=== PATIENT | female | born 1970 | race Caucasian/White ===

== ENCOUNTER 2025-02-15 16:06 | Emergency (ER) | payer BC, MEDICAID, SELFPAY ==
[2025-02-15 16:07] VITALS: BP 151/93; PULSE 106; RESP 16; TEMP 36.6; O2SAT 95; BMI 27.4
--- NOTE | 2025-02-15 16:16 | CTR_ITS ---
PROCEDURE INFORMATION: Exam: CT Head Without Contrast Exam date and time: 02/15/2025 4:38 PM Age: 54 years old Clinical indication: Other: Confusion TECHNIQUE: Imaging protocol: Computed tomography of the head without contrast. Radiation optimization: All CT scans at this facility use at least one of these dose optimization techniques: automated exposure control; mA and/or kV adjustment per patient size (includes targeted exams where dose is matched to clinical indication); or iterative reconstruction. COMPARISON: No relevant prior studies available. RADIATION DOSE METRICS: Total DLP (mGy-cm): 979.14 FINDINGS: Brain: Parenchymal structures of the brain demonstrate normal anatomy and attenuation. The midline is intact. Beam hardening artifact obscures resolution through the posterior fossa structures. No hemorrhage. Unremarkable white matter. No mass effect. Cerebral ventricles: Ventricles demonstrate normal size shape and configuration and are felt to be in proportion to the degree of widening of the sulci, sylvian fissures and basilar cisterns. Paranasal sinuses: Visualized sinuses are unremarkable. No fluid levels. Mastoid air cells: Visualized mastoid air cells are well aerated. Bones: The calvarial vault appears to be intact and in the range of normal. No acute fracture. Soft tissues: Unremarkable. CT/CT head wo con* [id number] IMPRESSION: No acute intracranial head CT findings identified.
--- NOTE | 2025-02-15 16:17 | W.ED.AMS ---
HPI - Altered Mental Status General: Chief Complaint: Altered Mental Status Stated Complaint: AMS Time Seen by Provider: 02/15/25 16:10 Source: patient and EMS Mode of arrival: EMS Limitations: no limitations History of Present Illness: 54-year-old female is here from a care home states that she has been off of her baseline since seems to confused to them and has been more disorganized in her room than normal. Patient here is well-appearing she is answering all my questions of appropriately here she is ANO x 4 no signs of psychosis she denies SI HI denies any headache. Associated symptoms: Deny depression Related Data Allergies Allergy/AdvReac Type Severity Reaction Status Date / Time No Known Allergies Allergy Verified 02/15/25 16:11 Review of Systems Const: Denies: fever(s), chills, body aches or change in appetite ENMT: Denies: throat pain or dental pain Card: Denies: chest pain Resp: Denies: dyspnea GI: Denies: abdominal pain, nausea, vomiting or diarrhea Musc: Denies: neck pain or back pain Skin/Breast: Denies: rash Neuro: Denies: headache(s) Psych: Denies: depression Physical Exam Const: COMMON NORMALS: no acute distress, patient oriented x3 and healthy appearing HENMT: COMMON NORMALS: normocephalic and atraumatic HEAD & SCALP: normocephalic and atraumatic Eye: COMMON NORMALS: Equal, round and reactive pupils present and EOMs intact bilaterally PUPIL: Yes Equal, round and reactive pupils present Neck/C-Spine: COMMON NORMALS: full ROM and supple Chest: COMMONS NORMALS: normal inspection of the chest and normal palpation of entire chest wall Resp: COMMON NORMALS: normal respiratory effort, No retractions, No use of accessory muscles and clear to auscultation bilaterally AUSCULTATION: clear to auscultation bilaterally Cardio: COMMON NORMALS: regular rate, regular rhythm and No murmurs present (Cardio) RATE: regular rate RHYTHM: regular rhythm GI: COMMON NORMALS: Normal to inspection, nondistended, normoactive bowel sounds present, Soft to palpation, non-tender and no masses PALPATION: Yes Soft to palpation Extremity: COMMON NORMALS: normal to inspection and full ROM Neuro: COMMON NORMALS: patient oriented x3, moves all extremities and no focal motor deficits Psych: COMMON NORMALS: mental status grossly normal, Normal thought process present and cooperative THOUGHT PROCESS: Normal thought process present Skin: COMMON NORMALS: no rashes or lesions noted and no wounds GENERAL SKIN EXAM: no rashes or lesions noted Course Vital Signs: Vital signs: Vital Signs Temperature 97.9 F 02/15/25 16:07 Pulse Rate 106 H 02/15/25 16:07 Respiratory Rate 18 02/15/25 16:48 Blood Pressure 97/60 02/15/25 17:43 Pulse Oximetry 98 02/15/25 17:43 Oxygen Delivery Me thod Room Air 02/15/25 17:43 MDM - Altered Mental Status Medical Decision Making Patient presents for some confusion and care home here she is answering my questions appropriately she has no signs of acute psychosis she is having whole hallucinations no SI no HI imaging blood works normal she stable for discharge back to care home Medical Records I reviewed the patient's medical records. Lab Data I reviewed the patient's lab results. 02/15/25 16:25 02/15/25 16:[address] 02/15/25 16:16 IMPRESSION: No acute intracranial head CT findings identified. Laboratory Results WBC 14.22 10^3/uL (3.29-11.43) H 02/15/25 16:25 RBC 4.61 10^6/uL (3.85-5.65) 02/15/25 16:25 Hgb 12.90 g/dL (11.27-16.99) 02/15/25 16:25 Hct 39.4 % (36-47) 02/15/25 16:25 MCV 85.5 fl (85-98) 02/15/25 16:25 MCH 28.0 pg (27-33) 02/15/25 16:25 MCHC 32.7 g/dL (30-55) 02/15/25 16:25 RDW 13.5 % (12.1-15.1) 02/15/25 16:25 Plt Count 357 10^3/cmm (157-399) 02/15/25 16:25 MPV 9.7 fL (7.4-10.4) 02/15/25 16:25 Neut % (Auto) 65.9 % 02/15/25 16:25 Lymph % (Auto) 21.5 % 02/15/25 16:25 [place] % (Auto) 10.4 % 02/15/25 16:25 Eos % (Auto) 1.2 % 02/15/25 16:25 Baso % (Auto) 0.3 % 02/15/25 16:25 Neut # (Auto) 9.37 10^3/uL (1.8-7.7) H 02/15/25 16:25 Lymph # (Auto) 3.1 10^3/uL (0.8-4.8) 02/15/25 16:25 [place] # (Auto) 1.5 10^3/uL (0.2-0.9) H 02/15/25 16:25 Eos # (Auto) 0.2 10^3/uL (0.0-0.8) 02/15/25 16:25 Baso # (Auto) 0.0 10^3/uL (0.0-0.1) 02/15/25 16:25 Nucleated RBC % (auto) 0 % 02/15/25 16: Nucleated RBCs # 0.0 /100WBC 02/15/25 16:25 Sodium 135 mmol/L (136-145) L 02/15/25 16:25 Potassium 3.9 mmol/L (3.5-5.1) 02/15/25 16:25 Chloride 96 mmol/L (98-107) L 02/15/25 16:25 Carbon Dioxide 25 mmol/L (22-29) 02/15/25 16:25 Anion Gap 17.9 (5-19) 02/15/25 16:25 BUN 12 mg/dL (6-20) 02/15/25 16:25 Creatinine 0.8 mg/dL (0.5-0.9) 02/15/25 16:25 GFR Calculation 74.5 mL/min (90-130) L 02/15/25 16:25 Glucose 116 mg/dL (65-115) H 02/15/25 16:25 Calculated Osmolality 281 mOsm/kg (285-295) L 02/15/25 16:25 Calcium 9.6 mg/dL (8.5-10.5) 02/15/25 16:25 Total Bilirubin 0.4 mg/dL (0.15-1.2) 02/15/25 16:25 AST 20 U/L (0-32) 02/15/25 16:25 ALT 15 U/L (0-33) 02/15/25 16:25 Alkaline Phosphatase 132 U/L (35-105) H 02/15/25 16:25 Total Protein 8.2 g/dL (6.6-8.7) 02/15/25 16:25 Albumin 4.5 g/dL (3.5-5.2) 02/15/25 16:25 Globulin 3.7 g/dL (1.3-4.6) 02/15/25 16:25 Urine Color Yellow (Yellow) 02/15/25 17:14 Urine Appearance Clear (CLEAR) 02/15/25 17:14 Urine pH 6.0 (5-7) 02/15/25 17:14 Ur Specific [place] 1.009 (1.005-1.030) 02/15/25 17:14 Urine Protein Negative (Negative) 02/15/25 17:14 Urine Glucose (UA) Negative (Normal) 02/15/25 17:14 Urine Ketones Negative (Negative) 02/15/25 17:14 Urine Blood Negative (Negative) 02/15/25 17:14 Urine Nitrate Negative (Negative) 02/15/25 17:14 Urine Bilirubin Negative (Negative) 02/15/25 17:14 Urine Urobilinogen 0.2 mg/dL (Negative) 02/15/25 17:14 Ur Leukocyte Esterase Negative (Negative) 02/15/25 17:14 Urine RBC 3-5 /hpf (0-2) 02/15/25 17:14 Urine WBC 0-5 /hpf (0-5) 02/15/25 17:14 Ur Squamous Epith Cells 0-5 /hpf (0-5) 02/15/25 17:14 Amorphous Sediment Not Reportable 02/15/25 17:14 Urine Bacteria None seen /hpf (NONE) 02/15/25 17:14 Hyaline Casts 2.46 /lpf 02/15/25 17:14 Salicylates < 0.3 mg/dL (3-10) L 02/15/25 16:25 Urine Opiates Screen Negative ng/mL (Negative) 02/15/25 17:14 Acetaminophen < 5.0 ug/mL (10-30) L 02/15/25 16:25 Ur Barbiturates Screen Negative ng/mL (Negative) 02/15/25 17:14 Ur Phencyclidine Scrn Negative ng/mL (Negative) 02/15/25 17:14 Ur Amphetamines Screen Negative ng/mL (Negative) 02/15/25 17:14 U Benzodiazepines Scrn Positive ng/mL (Negative) H 02/15/25 17:14 Urine Cocaine Screen Negative ng/mL (Negative) 02/15/25 17:14 U Marijuana (THC) Screen Negative ng/mL (Negative) 02/15/25 17:14 Ethyl Alcohol < 10 mg/dL (0-10) 02/15/25 16:25 All radiology interpretation(s) finalized by discharge EKG Data EKG 1: I personally reviewed and interpreted this EKG as follows: EKG interpretation date: 02/15/25 EKG interpretation time: 16:24 Interpretation: nsr hr [address] elevatin qrs 71 qtc 382 Discharge Plan Discharge Patient Disposition: Home Clinical Impression: Confusion Condition: Stable Discharge Orders: Discharge ED (Routine); Ordered 02/15/25 Ordered By: Codie Becerra Discharge Diet: Advance as tolerated Discharge Activity: Resume usual activity Patient Instructions: Altered Mental Status (ED) Print Language: Greek Coding Level of Care Code ED 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
--- NOTE | 2025-02-15 16:30 | PC.NURSE ---
informed pt for need of urine sample, gave pt water, pt refusing catheter.
[2025-02-15 16:31] LABS: Basophils % 0.3 %; Eosinophils # 0.2 10^3/uL (0.0-0.8); Eosinophils % 1.2 %; Hematocrit 39.4 % (36-47); Lymphocytes # 3.1 10^3/uL (0.8-4.8); Lymphocytes % 21.5 %; Mean Corpuscular HGB Conc 32.7 g/dL (30-55); Mean Corpuscular Volume 85.5 fl (85-98); Mean Platelet Volume 9.7 fL (7.4-10.4); Monocytes # 1.5 10^3/uL (0.2-0.9); Monocytes % 10.4 %; Neutrophils # 9.37 10^3/uL (1.8-7.7); Neutrophils % 65.9 %; Nucleated Red Blood Cells % 0 %; Platelet Count 357 10^3/cmm (157-399); Red Blood Count 4.61 10^6/uL (3.85-5.65); Red Cell Distribution Width 13.5 % (12.1-15.1); White Blood Count 14.22 10^3/uL (3.29-11.43)
[2025-02-15] MEDS: LORazepam 1 mg Tablet PO (16:32)
[2025-02-15 16:48] VITALS: RESP 18
[2025-02-15 16:51] LABS: Alanine Aminotransferase 15 U/L (0-33); Albumin Level 4.5 g/dL (3.5-5.2); Alkaline Phosphatase 132 U/L (35-105); Anion Gap 17.9 (5-19); Aspartate Amino Transferase 20 U/L (0-32); Blood Urea Nitrogen 12 mg/dL (6-20); Calcium 9.6 mg/dL (8.5-10.5); Carbon Dioxide 25 mmol/L (22-29); Chloride 96 mmol/L (98-107); Creatinine Clr Calc Pharmacy 77.5809; Globulin 3.7 g/dL (1.3-4.6); Glomerular Filtration Rate 74.5 mL/min (90-130); Glucose 116 mg/dL (65-115); Osmolality Calculated 281 mOsm/kg (285-295); Potassium 3.9 mmol/L (3.5-5.1); Sodium 135 mmol/L (136-145); Total Bilirubin 0.4 mg/dL (0.15-1.2); Total Protein 8.2 g/dL (6.6-8.7)
[2025-02-15 16:55] LABS: Acetaminophen < 5.0 ug/mL (10-30); Alcohol Level < 10 mg/dL (0-10); Salicylate < 0.3 mg/dL (3-10)
[2025-02-15] MEDS: haloperidol inj 5 mg/mL INJ 1 mL IVP (17:20)
--- NOTE | 2025-02-15 17:42 | PC.NURSE ---
pt provided with tea per request
[2025-02-15 17:43] VITALS: BP 97/60; O2SAT 98
[2025-02-15 18:00] LABS: Bilirubin Urine Negative (Negative); Blood Urine Negative (Negative); Glucose Urine UA Negative (Normal); Ketones Urine Negative (Negative); Leukocyte Esterase Urine Negative (Negative); Nitrate Urine Negative (Negative); Protein Urine Negative (Negative); Specific Gravity, Urine 1.009 (1.005-1.030); Urine Appearance Clear (CLEAR); Urine Color Yellow (Yellow); Urobilinogen Urine 0.2 mg/dL (Negative)
[2025-02-15 18:05] LABS: Add Urine Microscopic? YES; Bacteria Urine None Seen /hpf; Hyaline Casts Urine 2.46 /lpf; Squamous Epithelial Cell Urine 0-5 /hpf (0-5); Universal Test for UA Present (0); WBC Urine 0-5 /hpf (0-5)
[2025-02-15 18:07] LABS: Amphetamines Screen Urine Negative (Negative); Barbiturates Screen Urine Negative (Negative); Benzodiazepines Screen Urine Positive (Negative); Cocaine Screen Urine Negative (Negative); Opiate Screen Urine Negative (Negative); PCP Screen Urine Negative (Negative); THC Screen Urine Negative (Negative)
[2025-02-15 18:23] LABS: UA Slide Review UA Slide Review Perf
[2025-02-15 18:54] VITALS: BP 136/82; PULSE 98; RESP 18; O2SAT 98
--- NOTE | 2025-02-15 18:55 | PC.NURSE ---
report given to Shameka Dueñas RN @[id number]
--- NOTE | 2025-02-15 18:57 | PC.NURSE ---
report given to Shameka Dueñas RN @[id number]
[2025-02-15 21:48] VITALS: BP 138/79; PULSE 75; RESP 16; O2SAT 95
== END 2025-02-15 22:02 | disposition home or self-care (01) ==
PROVIDERS: Emergency Provider Emergency Medicine
DX: R41.0 Disorientation, unspecified (principal)
CPT/HCPCS: 36415; 70450; 80053; 80306; 80307; 81001; 85025; 96374; 99285; J1630; J9999